=== PATIENT | male | born 1950 | race Caucasian/White ===

== ENCOUNTER → 2016-05-02 | Day surgery (SDC) | payer MEDICARE, OTHER ==
[2016-05-02] VITALS (7 sets, daily range): BP systolic 108–146; BP diastolic 68–84
[~2016-05-02] VITALS: Ht 170.2 cm; Wt 72.6 kg
[~2016-05-02] MED LIST: CHOLESTEROL; CIPRO500 MG PO; KEFLEX500 MG ORAL; LR 1000ml ONE; Lidocaine 1% MPF 10mg/ml 5ml ONE; NKM; NORCO 10-325 T1 EACH ORAL; OMEPRAZOLE20 M2 ORAL; Propofol 10mg/ml 20ml IV ONE; TAMSULOSIN HCL0.4 MG ORAL; ZYRTEC10 MG ORAL
--- NOTE | 2016-05-02 08:58 | Anethesia Preoperative Eval ---
Anesthesia Pre-op PMH/ROS General Date of Evaluation: May 02, 2016 Time of Evaluation: 08:56 Anesthesiologist: bahman ASA Score: ASA 2 Mallampati Score Class I : Soft palate, uvula, fauces, pillars visible Class II: Soft palate, uvula, fauces visible Class III: Soft palate, base of uvula visible Class IV: Only hard plate visible Mallampati Classification: Class II Surgeon: sabas Surgical Procedure: egd/colonoscopy Anesthesia History: none Family History: no anesthesia problems Allergies: Coded Allergies: No Known Allergies (Unverified , 12/03/15) Medications: see eMAR Past Medical History Cardiovascular: Denies: CAD, HTN, AR, arrhythmia, other, valve dz Pulmonary: Denies: COPD, JEIMY, asthma, other Gastrointestinal/Genitourinary: Reports: GERD Neurologic/Psychiatric: Denies: CVA, TIA, dementia, depression/anxiety, other Endocrine: Denies: DM, hypothyroidism, other, steroids HEENT: Denies: [place] (L), [place] (R), cataract (L), cataract (R), glaucoma, other Hematology/Immune: Denies: DVT, anemia, bleeding disorder, other Musculoskeletal/Integumentary: Denies: DDD, DJD, OA, RA, edema, other PSxH Narrative: uroscopy Anesthesia Pre-op Phys. Exam Physician Exam Last Vital Signs Date Time Temp Pulse Resp B/P Pulse Ox O2 Delivery O2 Flow Rate FiO2 05/02/16 08:09 97.7 64 20 146/84 98 Room Air Constitutional: NAD Neurologic: CN 2-12 intact Cardiovascular: RRR Respiratory: CTA Gastrointestinal: S/NT/ND Airway Exam Mallampati Classification 3 Mallampati Score: Class II MO: full Neck: thick TMD: 2fb ROM: full Dentures: no lower, no upper Anesthesia Pre-op A/P Studies Pre-op Studies: EKG - sr Risk Assessment & Plan Plan: mac Status Change Before Surgery: No Pre-Antibiotics Drug: none JADA HEBERT CRNA May 02, 2016 08:58
--- NOTE | 2016-05-02 09:09 | Pre-Procedure Note/Attestation ---
Pre-Procedure Note/Attestation Complete Prior to Procedure Planned Procedure: not applicable Procedure Narrative: egd/colon Indications for Procedure Pre-Operative Diagnosis: screening colon, GERD Attestation I attest that I discussed the nature of the procedure; its benefits; risks and complications; and alternatives (and the risks and benefits of such alternatives ), prior to the procedure, with the patient (or the patient's legal career representative). I attest that, if there was a reasonable possibility of needing a blood transfusion, the patient (or the patient's legal career representative) was given the [facility] standardized written summary, pursuant to the [place] Blood Safety Act ([place] Health and Safety Code # 1645, as amended). I attest that I re-evaluated the patient just prior to the surgery and that there has been no change in the patient's H&P, except as documented below: YONATHAN LOVING May 02, 2016 09:09
--- NOTE | 2016-05-02 09:09 | Short Stay Surgery H&P ---
History of Present Illness History of Present Illness Chief Complaint see recent consult note HPI Yoseph Miranda is a 65 year old male who was admitted on for Abdominal Pain, Colon Screening Patient History Allergies: Coded Allergies: No Known Allergies (Unverified , 12/03/15) PAST MEDICAL HISTORY: Past Surgeries: Social History: Medication History Miscellaneous Medications [Cholesterol], (Reported) Discontinued Medications Ciprofloxacin* (Cipro*), 500 MG PO BID Discontinued Reason: Therapy completed Physical Exam Vital Signs Last Vital Signs Date Time Temp Pulse Resp B/P Pulse Ox O2 Delivery O2 Flow Rate FiO2 05/02/16 08:09 97.7 64 20 146/84 98 Room Air Plan Attestation Are the patient's medical conditions optimized for surgery? YONATHAN LOVING May 02, 2016 09:09
--- NOTE | 2016-05-02 09:34 | Endoscopy Procedure Note ---
Endoscopy Procedure Note Indication for Procedure: screening colon, GERD Procedures Performed: EGD, colonoscopy Operative Findings/Diagnosis: gastritis,2 polyps Specimen: yes Pt Tolerated Procedure Well: Yes Estimated Blood Loss: none Anesthesiologist: ray Anesthesia: MAC Implant(s) used?: No 50 yrs or older w/o bx or poly: No 10yrs. F/U not recommended: Yes If not recommended, why?: Above average risk 10 yrs. F/U needed: Yes 18 years or older w/prev. colo: No YONATHAN LOVING May 02, 2016 09:34
--- NOTE | 2016-05-02 10:06 | Immediate Post-Op Evaluation ---
Immediate Post-Op Evalulation Immediate Post-Op Evalulation Procedure: egd/colon Date of Evaluation: May 02, 2016 Time of Evaluation: 09:40 IV Fluids: 300 Blood Pressure Systolic: 117 Blood Pressure Diastolic: 65 Pulse Rate: 74 O2 Sat by Pulse Oximetry: 100 Temperature (Fahrenheit): 98.7 Nausea: No Vomiting: No Patient Status: awake, reacts, patent Hydration Status: adequate Drug: none JADA HEBERT CRNA May 02, 2016 10:06
--- NOTE | 2016-05-02 10:07 | 48 Hour Post Anesthesia Eval ---
Post Anesthesia Evaluation Procedure: egd/colon Date of Evaluation: May 02, 2016 Time of Evaluation: 10:06 Blood Pressure Systolic: 124 0: 72 Pulse Rate: 67 O2 Sat by Pulse Oximetry: 100 Airway: patent Nausea: No Vomiting: No Hydration Status: adequate Mental Status/LOC: patient returned to baseline Post-Anesthesia Complications: none Follow-up care needed: N/A JADA HEBERT CRNA May 02, 2016 10:07
--- NOTE | 2016-05-02 18:38 | Procedure Note ---
DATE OF PROCEDURE: 05/02/2016 SURGEON: Bay Ariza M.D. PROCEDURE: Colonoscopy with biopsy and polypectomy. ANESTHESIA: Per Jhoana MADERA. INSTRUMENT: Olympus adult flexible endoscope and colonoscope. REASON FOR PROCEDURE: The procedure, risks, benefits, and possible consequences, including hemorrhage, aspiration, perforation and infection, and alternative treatments, were explained to the patient/legal guardian by Dr. Bay Ariza and the patient/legal guardian understood and accepted these risks. INDICATION: Screening colonoscopy evaluation history of chronic gastroesophageal reflux disease. PROCEDURE: After informed consent was obtained, the patient was adequately sedated, Olympus upper endoscope was advanced through mouth into the second portion of the duodenum and small performed stomach. The patient had mild diffuse gastritis. Random biopsy from antrum of the stomach was obtained to rule out H. pylori infection. At this time, the upper endoscope was retrieved and the patient was turned over for colonoscopy. First rectal exam performed shows positive for internal hemorrhoids. Then, the scope was advanced from the rectum into the cecum, documented by appendiceal orifice, ileocecal valve, and right upper quadrant palpation. Quality of prep was very good. The patient had two polyps in the transverse colon, 1 sessile measured roughly about 8 mm, removed with hot snare polypectomy technique. There was another diminutive polyp in the transverse colon, removed with the cold biopsy forceps technique. The rest of the exam was grossly looked within normal. Retroflexion of rectum showed some nonbleeding internal hemorrhoids. The patient tolerated the procedure very well without any complications. FINDINGS: 1. Gastritis, status post biopsy. 2. Internal hemorrhoids. 3. Two colonic polyps removed, see above for details. RECOMMENDATIONS: Follow up biopsies and treat accordingly. We will recommend repeat colonoscopy in five years. Bay Ariza M.D. DR: GARTH JOB#: [id number] CC:
--- NOTE | 2016-05-29 15:44 | Cardiology Report ---
APPROVED REPORT EKG Measurement Heart [id number] 180P30 [id number] Normal sinus rhythm Inferior infarct, age undetermined Abnormal ECG
== END | disposition home or self-care (01) ==
LOC: GAS 07:16
DX: Z12.11 Encounter for screening for malignant neoplasm of colon (principal); D12.3 Benign neoplasm of transverse colon; K64.8 Other hemorrhoids; K21.9 Gastro-esophageal reflux disease without esophagitis; K29.50 Unspecified chronic gastritis without bleeding
CPT/HCPCS: 43239; 45380; 45385; 93005; J2704; J7120; 94003; 94150

== ENCOUNTER → 2016-05-17 | Outpatient (CLI) | payer MEDICARE, OTHER ==
[~2016-05-17] MED LIST changes: -LR 1000ml ONE; -Lidocaine 1% MPF 10mg/ml 5ml ONE; -Propofol 10mg/ml 20ml IV ONE
[2016-05-17 13:50] VITALS: BP 123/74
--- NOTE | 2016-05-17 14:07 | GI Progress Note ---
Assessment/Plan Problems: (1) GERD (gastroesophageal reflux disease) ICD Codes: K21.9 - Gastro-esophageal reflux disease without esophagitis SNOMED: 178248848 (2) Colonic polyp ICD Codes: K63.5 - Polyp of colon SNOMED: 67755002 (3) Gastritis ICD Codes: K29.70 - Gastritis, unspecified, without bleeding SNOMED: 3894694 (4) Epigastric abdominal pain ICD Codes: R10.13 - Epigastric pain; R33.8 - Other retention of urine SNOMED: 76381926 Status: stable Status Narrative Seen with Dr. Ariza. Assessment/Plan EGD/colonoscopy reviewed with patient. ordered CBC, CMP, PTT, PT/INR ordered abdominal U/S RTC x 1 week post results repeat colon x 5 years Subjective Subjective Abdominal Pain - RUQ, Epigastric Objective Last 24 Hour Vital Signs Date Time Temp Pulse Resp B/P Pulse Ox O2 Delivery O2 Flow Rate FiO2 05/17/16 13:50 98.3 72 16 123/74 General Appearance: no apparent distress, alert Cardiovascular: normal rate Respiratory/Chest: normal breath sounds, no accessory muscle use Abdominal Exam: normal bowel sounds, non tender, soft Extremities: normal range of motion Objective Endoscopy Procedure Note Indication for Procedure: screening colon, GERD Procedures Performed: EGD, colonoscopy Operative Findings/Diagnosis: gastritis,2 polyps YONATHAN ARIZA - May 02, 2016 09:34 Merari Benavides N.P. May 17, 2016 14:07
[2016-05-17 15:58] LABS: BASOPHILS % (AUTO) 0.6 % (0.0-2.0); EOSINOPHILS % (AUTO) 2.9 % (0.0-3.0); LYMPHOCYTES % (AUTO) 23.5 % (20.0-45.0); MEAN CORPUSCULAR HEMOGLOBIN 30.9 PG (27.0-31.0); MEAN CORPUSCULAR HGB CONC 34.4 G/DL (32.0-36.0); MEAN CORPUSCULAR VOLUME 90 FL (80-99); MONOCYTES % (AUTO) 6.5 % (1.0-10.0); NEUTROPHILS % (AUTO) 66.5 % (45.0-75.0); PLATELET COUNT 237 K/UL (150-450); RED BLOOD COUNT 4.95 M/UL (4.70-6.10); RED CELL DISTRIBUTION WIDTH 11.4 % (11.6-14.8); WHITE BLOOD COUNT 7.9 K/UL (4.8-10.8)
[2016-05-17 16:30] LABS: INR 1.1 (0.9-1.1)
[2016-05-17 16:31] LABS: ANION GAP 16 (5-15); CALCIUM 9.4 mg/dL (8.6-10.2); CARBON DIOXIDE 25 mEQ/L (20-30); CHLORIDE 99 mEQ/L (98-107); CREATININE 0.7 mg/dL (0.7-1.2); GLOMERULAR FILTRATION RATE > 60 mL/min (>60); HEMOLYSIS 3; POTASSIUM 3.7 mEQ/L (3.4-4.9); SODIUM 140 mEQ/L (135-145)
== END | disposition home or self-care (01) ==
LOC: PAN 13:39
DX: K21.9 Gastro-esophageal reflux disease without esophagitis (principal); K63.5 Polyp of colon; K29.70 Gastritis, unspecified, without bleeding; R10.13 Epigastric pain; R33.8 Other retention of urine
CPT/HCPCS: 36415; 80048; 85025; 85610; 85730; G0463; 99211

== ENCOUNTER → 2016-05-30 | Outpatient (CLI) | payer MEDICARE, OTHER ==
--- NOTE | 2016-05-30 12:29 | Diagnostic Imaging Report ---
Indication: Abdominal pain Technique: Moser-scale and duplex images of the upper abdomen were obtained Comparison: Reference made to renal ultrasound dated 12/14/2015, CT abdomen pelvis dated 12/14/2015 Findings: . Gallbladder is unremarkable, without stones, wall thickening, nor pericholecystic fluid. Sonographic Medina's sign is negative. Common bile duct measures 5 mm in diameter. No intrahepatic biliary ductal dilatation. Liver demonstrates normal echogenicity, no focal abnormality. Portal vein and hepatic veins are patent.. Pancreas is unremarkable. Spleen is unremarkable. Left kidney measures 12.4 cm in length. Right kidney measures 11.6 cm length. Both kidneys demonstrate normal echogenicity. There is no hydronephrosis. Right kidney demonstrates level cysts, also previously reported. . Non-aneurysmal abdominal aorta. Impression: Essentially unremarkable exam Incidental finding of right renal cysts
== END | disposition home or self-care (01) ==
LOC: ULS 09:50
DX: N28.1 Cyst of kidney, acquired (principal)
CPT/HCPCS: 76700